=== PATIENT | male | born 1945 | race Caucasian/White ===

== ENCOUNTER 2020-03-12 13:27 | Outpatient (CLI) | payer OTHER, SELFPAY ==
--- NOTE | 2020-03-12 13:37 | MR_ITS ---
WS: [id number] MRI OF THE ABDOMEN WITHOUT AND WITH GADOLINIUM ENHANCEMENT INDICATION: Renal lesion TECHNIQUE: Axial dual Echo, axial 2-D fiesta, coronal 2-D fiesta, axial T2 fat sat, axial T1 fat sat, post gadolinium imaging was obtained. FINDINGS: Correlation outside CT report Normal bilateral renal parenchymal enhancement. No hydronephrosis. Bilateral renal cysts. Right renal cyst measuring 1.8 cm with some T1 hyperintensity consistent with proteinaceous debris or blood prod ucts and no enhancement. Additional adjacent peripelvic renal cyst measuring 1.2 cm Smaller left lower pole renal cyst measuring 10 mm. No abnormal enhancing renal lesions. Additional tiny cyst mid pole left kidney. One or 2 additional tiny lesions lower pole right kidney likely cysts measuring 1 to 2 mm Incidental right hepatic cyst measuring 12 mm. Additional suspected cavernous hemangioma right hepati c lobe measuring 12 mm. Normal caliber abdominal aorta. Adrenal glands are normal. Cholelithiasis. No abdominal lymphadenopathy. MR/MR abdomen wo/w con* [id number] IMPRESSION: 1. Bilateral renal cysts largest on the right measuring 1.8 cm. No solid enhan cing renal lesions. 2. No hydronephrosis in either kidney. 3. Right hepatic cyst right and right hepatic cavernous hemangioma described a chayito. 4. Cholelithiasis. 5. No abdominal lymphadenopathy.
== END 2020-03-12 13:28 | disposition home or self-care (01) ==
LOC: RADSHAW 13:30
PROVIDERS: PCP Nurse Practitioner; Visit Provider Nurse Practitioner
DX: N28.9 Disorder of kidney and ureter, unspecified (principal); Q61.02 Congenital multiple renal cysts; K80.20 Calculus of gallbladder without cholecystitis without obstruction
CPT/HCPCS: 74183; A9577

== ENCOUNTER 2020-04-07 08:08 | Day surgery (SDC) | payer OTHER, SELFPAY ==
[2020-04-06 10:20] VITALS: BMI 27.8
[2020-04-07 08:15] VITALS: BP 142/87; PULSE 63; RESP 16; TEMP 36.8; O2SAT 98
[2020-04-07] MEDS: sodium chloride 0.9% 1,000 ML 30 ML IV (08:29)
--- NOTE | 2020-04-07 08:42 | P.ANESASSM_ITS ---
Pre-Anesthetic Assessment Pre-Anesthetic Assessment: Height/Weight: Height 1.83 m Weight 92.986 kg Temp Pulse Resp BP Pulse Ox 98.3 F 63 16 142/87 98 04/07/20 08:15 04/07/20 08:15 04/07/20 08:15 04/07/20 08:15 04/07/20 08:15 Preop Diagnosis: panendoscopy Proposed Procedure: Operation Date: 04/07/20 09:00 Proposed Procedures p EGD/colon [id number] R10.9 R19.7(Not Applicable) - Brandon Lantigua MD s Colonoscopy(Not Applicable) - Brandon Lantigua MD Was Beta Harpreet taken within 24 hours: N/A Last intake: Intake Last Liquid Date 04/07/20 Last Liquid Time 07:00 Last Solid Date 04/06/20 Last Solid Time 07:00 Social: Social History: No alcohol and No tobacco Exam: Pre-Anes Outpt Exam: alert, oriented x 3, clear to auscultation bilaterally and regular rate & rhythm Airway: Submandibular: WNL Cervical ROM: WNL MP: 2 Dentition: Full Neuropsych: Neuropsych: SIEGEL Anesthetic Plan: ASA status: 2 Anesthesia: MAC Risk of > 500 ml blood loss (7ml/kg in children): No Meds/Allergies Current Medications: Current Medications Generic Name Dose Route Start Last Admin Trade Name Freq PRN Reason Stop Dose Admin Sodium Chloride 1,000 mls @ 30 ml s/hr 04/07/20 08:15 04/07/20 08:29 Sodium Chloride 0.9% IV 04/08/20 08:14 30 mls/hr .Q24H NAA Administration PFSH Anesthesia 2 PFSH: Medical History (Updated 03/23/20 @ 14:16 by Brandon Lantigua MD) BPH (benign prostatic hyperplasia) History of glaucoma Migraine Surgical History (Updated 03/23/20 @ 14:16 by Brandon Lantigua MD) H/O eye surgery History of colonoscopy Family History (Updated 03/23/20 @ 14:01 by Clemencia Johns RN) Denies family history of Anesthesia complication Bleeding disorder Social History Smoking and tobacco status: never smoked Alcohol intake: never Data Anesthesia Cardiac Studies: No Data to Display
--- NOTE | 2020-04-07 09:28 | W.PM.OPSUD ---
Surgery/Procedure H&P Update DATE OF PROCEDURE: April 07, 2020 DATE H&P PERFORMED: 03/23/20 H&P UPDATE INFORMATION: I have reviewed H&P completed within last 30 days, I have examined patient prior to procedure and No changes to prior documentation PREOP DIAGNOSIS: panendoscopy PLANNED PROCEDURE: Operation Date: 04/07/20 09:00 Proposed Procedures p EGD/colon 81785 [id number] R10.9 R19.7(Not Applicable) - Brandon Lantigua MD s Colonoscopy(Not Applicable) - Brandon Lantigua MD
[2020-04-07 09:58] VITALS: BP 116/82; PULSE 61; RESP 16; TEMP 36.1; O2SAT 99
[2020-04-07 10:15] VITALS: BP 105/67; PULSE 64; RESP 16; O2SAT 97
--- NOTE | 2020-04-07 12:07 | ANE.PACU2 ---
Inpatient post-anesthesia follow up: Airway intact: Yes Vital signs: Temperature 97 F Pulse Rate 64 Respiratory Rate 16 Blood Pressure 105/67 Pulse Oximetry 97 Oxygen Delivery Me thod Room Air Oxygen Flow Rate Fraction of Inspir ed Oxygen Hydration adequate: Yes Nausea and vomiting: No Pain level: 1 Mental status: Baseline
== END 2020-04-07 10:24 | disposition home or self-care (01) ==
PROVIDERS: PCP Nurse Practitioner; Visit Provider Surgery
PROC: 0DJ08ZZ Inspection of Upper Intestinal Tract, Via Natural or Artificial Opening Endoscopic (ICD-10-PCS; CPT 43235; principal; 2020-04-07 09:00)
PROC: 0DJD8ZZ Inspection of Lower Intestinal Tract, Via Natural or Artificial Opening Endoscopic (ICD-10-PCS; CPT 45378; 2020-04-07 09:00)
DX: R11.2 Nausea with vomiting, unspecified (principal); R10.9 Unspecified abdominal pain; N40.0 Benign prostatic hyperplasia without lower urinary tract symptoms; R19.7 Diarrhea, unspecified; K64.8 Other hemorrhoids; K25.9 Gastric ulcer, unspecified as acute or chronic, without hemorrhage or perforation
CPT/HCPCS: 43239; 45378; 88305; J2704; J3490; J7030

== ENCOUNTER → 2020-04-28 13:34 | Outpatient (BNVA) | payer OTHER, SELFPAY | PROVIDERS: PCP Nurse Practitioner; Visit Provider Specialist | DX: G56.03 Carpal tunnel syndrome, bilateral upper limbs (principal); R20.0 Anesthesia of skin; R20.2 Paresthesia of skin | CPT/HCPCS: 95910 ==

== ENCOUNTER → 2020-06-10 08:49 | Outpatient (BNVA) | payer OTHER, SELFPAY | PROVIDERS: PCP Nurse Practitioner; Referring Provider Nurse Practitioner; Visit Provider Internal Medicine Rheumatology | DX: M19.90 Unspecified osteoarthritis, unspecified site (principal); G56.03 Carpal tunnel syndrome, bilateral upper limbs; Z79.899 Other long term (current) drug therapy; Z11.59 Encounter for screening for other viral diseases; Z11.1 Encounter for screening for respiratory tuberculosis; Z86.16 Personal history of COVID-19 | CPT/HCPCS: 99204 ==

== ENCOUNTER 2020-06-10 10:36 | Outpatient (CLI) | payer OTHER, SELFPAY ==
--- NOTE | 2020-06-10 10:48 | XR_ITS ---
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 There is a 2 mm metallic foreign body noted along the lateral jaclyn n of the second MP joint. Joint structures are relatively well maintained. XR/XR hand RT min 3V* [id number] IMPRESSION: 1. No fracture or dislocation. 2. 2 mm metallic foreign body in the soft tissues near the second MP joint.
--- NOTE | 2020-06-10 10:48 | XR_ITS ---
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 No sign of bone destruction. Mild DJD at the first MP joint. Normal soft tissues. XR/XR foot RT min 3V* [id number] IMPRESSION: 1. No fracture. 2. Mild DJD at the first MP joint.
--- NOTE | 2020-06-10 10:48 | XR_ITS ---
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 Articular relationships are intact. No soft tissue foreign bodies. Very minimal degenerative joint changes noted consistent with age. XR/XR hand LT min 3V* [id number] IMPRESSION: 1. No fracture or other significant finding. 2. Very minimal degenerative joint changes are noted consistent with age.
--- NOTE | 2020-06-10 10:48 | XR_ITS ---
WS: [id number] Exam: XR foot LT min 3V* [id number] Date/Time of Exam: 06/10/2020 11:16 AM Reason For Exam: Z79.899 - Other exterminator (current) drug therapy No fracture or dislocation. Joint structures are relatively well maintained. No soft tissue foreign b odies are seen. No sign of cortical erosion or bone destruction. XR/XR foot LT min 3V* [id number] IMPRESSION: 1. Negative left foot.
--- NOTE | 2020-06-10 10:48 | XR_ITS ---
WS: [id number] Exam: XR chest 2V* [id number] Date/Time of Exam: 06/10/2020 10:48 AM Reason For Exam: Z79.899 - Other long term acute care registered nurse (current) drug therapy Findings: The lungs are clear and fully expanded. Costophrenic angles are sharp. No infiltrates. Bronchovascula r relief appears normal. Cardiac silhouette is unremarkable. Bony elements are intact. XR/XR chest 2V* [id number] IMPRESSION: Unremarkable chest radiograph.
[2020-06-10 11:29] LABS: Basophils % 0.8 %; Eosinophils # 0.4 10^3/uL (0.0-0.8); Eosinophils % 8.5 %; Hematocrit 44.8 % (42.0-52.0); Hemoglobin 14.5 g/dL (11.7-16.6); Lymphocytes # 1.3 10^3/uL (0.8-4.8); Mean Corpuscular HGB Conc 32.4 g/dL (30.0-36.0); Mean Corpuscular Hemoglobin 31.1 pg (28.0-34.0); Mean Corpuscular Volume 96.1 fL (80-94); Mean Platelet Volume 10.3 fL (7.4-10.4); Monocytes # 0.7 10^3/uL (0.2-0.9); Monocytes % 13.2 %; Neutrophils # 2.52 10^3/uL (1.8-7.7); Neutrophils % 51.1 %; Nucleated Red Blood Cells % 0 %; Platelet Count 216 10^3/cmm (130-400); Red Blood Count 4.66 10^6/uL (4.1-5.3); Red Cell Distribution Width 14.6 % (12.1-15.1); White Blood Count 4.9 10^3/uL (4.0-10.0)
[2020-06-10 12:35] LABS: Hepatitis B Core AB, Total Non-Reactive (Nonreactive); Hepatitis B Surface Antigen Non-Reactive (Nonreactive); Hepatitis C Virus Antibody Non-Reactive (Nonreactive)
[2020-06-10 13:07] LABS: Erythrocyte Sedimentation Rate 14 mm/hr (0-10)
[2020-06-10 13:50] LABS: 25 Hydroxy Vitamin D 41 ng/mL (30-100); Alanine Aminotransferase 53 U/L (0-41); Albumin Level 3.7 g/dL (3.5-5.2); Alkaline Phosphatase 75 IU/L (40-130); Aspartate Amino Transferase 51 U/L (0-40); Globulin 3.6 g/dL (1.3-4.6); Total Bilirubin 0.5 mg/dL (0.15-1.2); Total Protein 7.3 g/dL (6.6-8.7)
[2020-06-11 13:47] LABS: Cyclic Citrullinated Peptide <16 UNITS
[2020-06-12 10:53] LABS: COMPLEMENT COMPONENT C3C 122 mg/dL (82-185); COMPLEMENT COMPONENT C4C 23 mg/dL (15-53)
[2020-06-12 12:33] LABS: Quantiferon Mitogen 7.47 IU/mL; Quantiferon Nil 0.13 IU/mL; Quantiferon Plus TB1 0.02 IU/mL; Quantiferon Plus TB2 0.04 IU/mL; Quantiferon TB Gold NEGATIVE (NEGATIVE)
[2020-06-12 15:53] LABS: COMPLEMENT, TOTAL (CH50) >60 U/mL (31-60)
[2020-06-15 14:27] LABS: ANA SCREEN, IFA NEGATIVE (NEGATIVE)
[2020-06-15 15:32] LABS: THYROID PEROXIDASE ANTIBODIES 1 IU/mL (<9)
[2020-06-16 15:22] LABS: CENTROMERE B ANTIBODY <1.0 NEG AI (<1.0 NEG); JO-1 ANTIBODY <1.0 NEG AI (<1.0 NEG); RNP ANTIBODY <1.0 NEG AI (<1.0 NEG); SCL-70 ANTIBODY <1.0 NEG AI (<1.0 NEG); SJOGREN'S ANTIBODY (SS-A) >8.0 POS AI (<1.0 NEG); SM ANTIBODY <1.0 NEG AI (<1.0 NEG); SS-B <1.0 NEG AI (<1.0 NEG)
[2020-06-16 16:27] LABS: DNA AB (DS) CRITHIDIA,IFA NEGATIVE (NEGATIVE)
== END 2020-06-10 10:37 | disposition home or self-care (01) ==
LOC: RAD 10:40
PROVIDERS: PCP Nurse Practitioner; Visit Provider Internal Medicine Rheumatology
DX: M19.90 Unspecified osteoarthritis, unspecified site (principal); Z79.899 Other long term (current) drug therapy; Z11.59 Encounter for screening for other viral diseases; R76.8 Other specified abnormal immunological findings in serum; Z11.1 Encounter for screening for respiratory tuberculosis
CPT/HCPCS: 36415; 71046; 73130; 73630; 80076; 82306; 82565; 85025; 85651; 86140; 86160; 86162; 86235; 86255; 86376; 86480; 86704; 86803; 87340

== ENCOUNTER → 2020-07-14 14:20 | Outpatient (BNVA) | payer OTHER, SELFPAY | PROVIDERS: PCP Nurse Practitioner; Visit Provider Internal Medicine Rheumatology | DX: M19.90 Unspecified osteoarthritis, unspecified site (principal); M35.00 Sjogren syndrome, unspecified; Z79.899 Other long term (current) drug therapy; G56.03 Carpal tunnel syndrome, bilateral upper limbs; Z86.16 Personal history of COVID-19 | CPT/HCPCS: 99214 ==

== ENCOUNTER 2020-09-07 14:16 | Outpatient (CLI) | payer OTHER, SELFPAY ==
--- NOTE | 2020-09-07 14:22 | US_ITS ---
WS: [id number] ULTRASOUND RENAL TECHNIQUE: Ultrasound examination of both kidneys. CLINICAL INFORMATION: CYST OF KIDNEY, ACQUIRED COMPARISON: None. FINDINGS: Technically difficult examination due to bowel gas RIGHT: Right kidney is normal in size and appearance. Echogenicity: Normal. Cortical thickness: 1.8 cm; Normal. Hydronephrosis: None. Perinephric fluid: None. Right kidney measures: 11.1 cm x 5.0 cm x 6.4 cm. LEFT: Left kidney is normal in size and appearance. Echogenicity: Normal. Cortical thickness: 1.5 cm; Normal. Hydronephrosis: None. Perinephric fluid: None. Left kidney measures: 11.2 cm x 4.6 cm x 5.4 cm. Normal visualized aorta. Bladder is decompressed. US/US renal BI* [id number] IMPRESSION: Technically difficult examination. 1. Both kidneys are normal in appearance. No hydronephrosis. 2. Bladder is decompressed.
== END 2020-09-07 14:17 | disposition home or self-care (01) ==
LOC: RAD 14:18
PROVIDERS: PCP Nurse Practitioner; Visit Provider Urology
DX: N28.1 Cyst of kidney, acquired (principal)
CPT/HCPCS: 76770

== ENCOUNTER → 2020-09-08 12:59 | Outpatient (BNVA) | payer OTHER, SELFPAY | PROVIDERS: PCP Nurse Practitioner; Visit Provider Urology | DX: N28.1 Cyst of kidney, acquired (principal); N52.1 Erectile dysfunction due to diseases classified elsewhere; N48.6 Induration penis plastica | CPT/HCPCS: 81003 ==

== ENCOUNTER → 2020-10-12 10:37 | Outpatient (BNVA) | payer OTHER, SELFPAY | PROVIDERS: PCP Nurse Practitioner; Referring Provider Nurse Practitioner; Visit Provider Specialist | DX: G56.03 Carpal tunnel syndrome, bilateral upper limbs (principal) | CPT/HCPCS: 73110 ==

== ENCOUNTER → 2020-11-18 12:41 | Outpatient (BNVA) | payer OTHER, SELFPAY | PROVIDERS: PCP Nurse Practitioner; Visit Provider Internal Medicine | DX: Z71.89 Other specified counseling (principal); Z79.899 Other long term (current) drug therapy; M19.90 Unspecified osteoarthritis, unspecified site; M35.00 Sjogren syndrome, unspecified | CPT/HCPCS: 36415; 80076; 82565; 85025; 86140 ==

== ENCOUNTER 2020-11-19 10:03 | Outpatient (CLI) | payer OTHER, SELFPAY ==
--- NOTE | 2020-11-19 10:12 | US_ITS ---
WS: [id number] ULTRASOUND ABDOMEN CLINICAL INFORMATION: ELEVATED LIVER ENZYMES COMPARISON: MRI March 12, 2020 FINDINGS: Liver Size: Normal. Craniocaudal length: 14.5 cm. Echogenicity: Normal. Surface nodularity: None. Mass (size and location): Right cavernous hemangioma measuring 1.8 x 1.2 x 1.6 cm is stable. Bile ducts Intrahepatic ducts: Normal. Common bile duct diameter: 0.3 cm. Gallbladder Cholelithiasis Gallstones: Present Gallbladder sludge: None. Gallbladder wall thickening: None. Pericholecystic fluid: None. Sonographic Casanova sign: Absent. Pancreas Normal as visualized. Spleen Splenomegaly: None. Craniocaudal length: 9.0 cm. Right kidney: Normal. Hydronephrosis: None. Size: 9.9 cm x 4.6 cm x 4.2 cm Left kidney: Normal. Hydronephrosis: None. Size: 11.0 cm x 6.2 cm x 6.1 cm. Abdominal aorta and IVC Visualized portions are normal. Ascites: None. US/US abdomen complete* [id number] IMPRESSION: 1. Stable hemangioma right hepatic lobe. 2. Cholelithiasis. Normal common bile duct. No gallbladder wall thickening or pericholecystic fluid. 3. No hydronephrosis in either kidney.
== END 2020-11-19 10:04 | disposition home or self-care (01) ==
LOC: US 10:04
PROVIDERS: PCP Nurse Practitioner; Visit Provider Emergency Medicine Emergency Medical Services
DX: R74.8 Abnormal levels of other serum enzymes (principal); D18.09 Hemangioma of other sites; K80.20 Calculus of gallbladder without cholecystitis without obstruction
CPT/HCPCS: 76700

== ENCOUNTER → 2020-11-23 08:11 | Outpatient (BNVA) | payer OTHER, SELFPAY | PROVIDERS: PCP Nurse Practitioner; Referring Provider Nurse Practitioner; Visit Provider Specialist | DX: M25.511 Pain in right shoulder (principal); M19.011 Primary osteoarthritis, right shoulder | CPT/HCPCS: 73030 ==

== ENCOUNTER → 2020-11-26 07:58 | Outpatient (BNVA) | payer OTHER, SELFPAY | PROVIDERS: PCP Nurse Practitioner; Referring Provider Specialist; Visit Provider Specialist | DX: G56.03 Carpal tunnel syndrome, bilateral upper limbs (principal); G56.22 Lesion of ulnar nerve, left upper limb | CPT/HCPCS: 95886; 95910; 99202 ==

== ENCOUNTER 2020-12-08 07:00 | Outpatient (CLI) | payer OTHER, SELFPAY ==
--- NOTE | 2020-12-08 07:15 | MR_ITS ---
WS: [id number] MRI RIGHT SHOULDER HISTORY: S49.90XA - Unspecified injury of shoulder and upper arm, ... COMPARISON: Radiograph 11/23/2020 TECHNIQUE: Multiplanar sequences of the shoulder joint are submitted. Moderate AC joint arthritis. Bone and soft tissue hypertrophy at the AC joint with encroachment upon the supraspinatus tendon and muscle. Moderate amount of fluid in the subacromial and subdeltoid bursa . No os acromion. Biceps tendon remains in the bicipital groove. There is increased fluid within the tendon sheath. There is a large fluid gap within the supraspinatus tendon. The fluid gap measures 14 mm and is over the superior lateral humeral head. There is retraction of the tendon to the superior humeral head. Th ere is also increased fluid extending along the supraspinatus muscle. Infraspinatus tendon is intact. Subscapularis tendon is also intact. Moderate amount of fluid surrounding the humeral head extending into the axillary recess. Subchondral cystic changes over the posterior lateral humeral head. No labral tear is identified. Mil d narrowing of the glenohumeral joint. MR/MR shoulder RT wo con* [id number] IMPRESSION: 1. Complete tear supraspinatus tendon. Tear extends over a length of 14 mm wi th mild retraction of the tendon. 2. Moderate AC joint arthritis with encroachment upon the supraspinatus tendon and muscle. 3. Increase fluid along the supraspinatus muscle.
== END 2020-12-08 07:01 | disposition home or self-care (01) ==
PROVIDERS: PCP Nurse Practitioner; Visit Provider Specialist
DX: M75.121 Complete rotator cuff tear or rupture of right shoulder, not specified as traumatic (principal); M19.011 Primary osteoarthritis, right shoulder
CPT/HCPCS: 73221; 99214

== ENCOUNTER → 2020-12-18 08:18 | Outpatient (BNVA) | payer OTHER, SELFPAY | PROVIDERS: PCP Nurse Practitioner; Visit Provider Specialist | DX: Z20.822 Contact with and (suspected) exposure to COVID-19 (principal); M25.511 Pain in right shoulder | CPT/HCPCS: 87635 ==

== ENCOUNTER 2020-12-22 05:25 | Day surgery (SDC) | payer OTHER, SELFPAY ==
[2020-12-21 14:00] VITALS: BMI 28.2
[2020-12-22 05:55] VITALS: BP 132/85; PULSE 66; RESP 18; TEMP 36.7; O2SAT 98
[2020-12-22] MEDS: CELEcoxib 200 mg Capsule 400 MG PO (06:18)
[2020-12-22] MEDS: acetaminophen 1,000 MG/100 ML PIGGYBACK 400 MG IV (06:19)
--- NOTE | 2020-12-22 06:19 | ANES.PREANE2 ---
Pre-Anesthetic Assessment Pre-Anesthetic Assessment: Height/Weight: Height 1.83 m Weight 94.347 kg Temp Pulse Resp BP Pulse Ox 98.1 F 66 18 132/85 98 12/22/20 05:55 12/22/20 05:55 12/22/20 05:55 12/22/20 05:55 12/22/20 05:55 Preop Diagnosis: Right rotator cuff tear, AC joint DJD, impingement Proposed Procedure: Operation Date: 12/22/20 07:00 Proposed Procedures p Rotator Cuff Repair [id number] M75.100 M25.511(Right) - Connie Pena MD s Acromioplaty Distal Clavicle Resection(Right) - Connie Pena MD Was Beta Harpreet taken within 24 hours: N/A Was Clonidine taken within 24 hours: N/A Last intake: Intake Last Liquid Date 12/21/20 Last Liquid Time 20:00 Last Solid Date 12/21/20 Last Solid Time 18:00 Social: Social History: No tobacco Exam: Pre-Anes Outpt Exam: alert, oriented x 3, clear to auscultation bilaterally and regular rate & rhythm Airway: Submandibular: WNL Cervical ROM: WNL MP: 2 History/ROS: No significant history except as noted and No significant complaints Neuropsych: Neuropsych: SIEGEL Anesthetic Plan: ASA status: 2 Anesthesia: Anesthesia Evaluation, General and Regional (specify below) Other: Right interscalene block. Risk of > 500 ml blood loss (7ml/kg in children): No PFSH Anesthesia PFSH: Medical History BPH (benign prostatic hyperplasia) Cyst of kidney, acquired Erectile dysfunction High risk medication use History of glaucoma Immunization counseling Inflammatory arthritis Migraine Peyronie's disease Primary Sjogren's syndrome Surgical History H/O esophagogastroduodenoscopy (~04/07/20) H/O eye surgery History of colonoscopy (~04/07/20) Family History Mother , at age 72 Arthritis Sister Rheumatoid arthritis Father , at age 71 Stroke Social History Smoking and tobacco status: never smoked Alcohol intake: current Alcohol intake frequency: 3 or more drinks per day Marital status: Current occupational status: retired History of recent travel: No Data Anesthesia CBC & Chem 7: 12/22/20 06:09 12/22/20 06:09 Cardiac Studies: No Data to Display
[2020-12-22] MEDS: sodium chloride 0.9% 1,000 ML 30 ML IV (06:20)
[2020-12-22 06:24] LABS: Basophils # 0.1 10^3/uL (0.0-0.1); Basophils % 0.9 %; Eosinophils # 0.5 10^3/uL (0.0-0.8); Eosinophils % 8.1 %; Hematocrit 43.8 % (42.0-52.0); Hemoglobin 14.6 g/dL (11.7-16.6); Lymphocytes # 1.7 10^3/uL (0.8-4.8); Lymphocytes % 30.1 %; Mean Corpuscular HGB Conc 33.3 g/dL (30.0-36.0); Mean Corpuscular Hemoglobin 31.5 pg (28.0-34.0); Mean Corpuscular Volume 94.6 fl (80-94); Mean Platelet Volume 10.8 fL (7.4-10.4); Monocytes # 0.8 10^3/uL (0.2-0.9); Monocytes % 13.8 %; Neutrophils # 2.63 10^3/uL (1.8-7.7); Neutrophils % 47.1 %; Nucleated Red Blood Cells % 0 %; Platelet Count 234 10^3/cmm (130-400); Red Blood Count 4.63 10^6/uL (4.1-5.3); Red Cell Distribution Width 14.3 % (12.1-15.1); White Blood Count 5.6 10^3/uL (4.0-10.0)
[2020-12-22 06:36] LABS: Alanine Aminotransferase 27 U/L (0-41); Albumin Level 3.7 g/dL (3.5-5.2); Alkaline Phosphatase 60 IU/L (40-130); Anion Gap 12.2 (5-19); Aspartate Amino Transferase 32 U/L (0-40); Blood Urea Nitrogen 12 mg/dL (8-23); Calcium 8.6 mg/dL (8.5-10.5); Carbon Dioxide 27 mmol/L (22-29); Chloride 103 mmol/L (98-107); Globulin 3.8 g/dL (1.3-4.6); Glucose 86 mg/dL (65-115); Osmolality Calculated 285 mOsm/kg (285-295); Potassium 4.2 mmol/L (3.5-5.1); Sodium 138 mmol/L (136-145); Total Bilirubin 0.9 mg/dL (0.15-1.2); Total Protein 7.5 g/dL (6.6-8.7)
--- NOTE | 2020-12-22 06:53 | P.HPUD_ITS ---
Surgery/Procedure H&P Update DATE OF PROCEDURE: December 22, 2020 DATE H&P PERFORMED: 12/16/20 H&P UPDATE INFORMATION: I have reviewed H&P completed within last 30 days, I have examined patient prior to procedure, No changes to prior documentation and H&P is in [facility] [place] EMR on date indicated PREOP DIAGNOSIS: Right rotator cuff tear, AC joint DJD, impingement PLANNED PROCEDURE: Operation Date: 12/22/20 07:00 Proposed Procedures p Rotator Cuff Repair [id number] M75.100 M25.511(Right) - Connie Pena MD s Acromioplaty Distal Clavicle Resection(Right) - Connie Pena MD Related Problem List Diagnoses (1) Arthritis of right acromioclavicular joint: (2) Impingement syndrome of right shoulder: (3) Rotator cuff tear, right: Qualifiers: Rotator cuff tear extent: complete Rotator cuff tear trauma status: unspecified whether traumatic Qualified Code(s): M75.121 - Complete rotator cuff tear or rupture of right shoulder, not specified as traumatic
[2020-12-22] MEDS: midazolam 1 mg/mL INJ 5 ML 5 MG IVP (06:57)
[2020-12-22 09:52] VITALS: BP 137/87; PULSE 71; RESP 18; O2SAT 97
--- NOTE | 2020-12-22 09:59 | P.OP_ITS ---
Operative Report Date of procedure: December 22, 2020 Pre-op Diagnosis: Right rotator cuff tear, AC joint DJD, impingement Post-op diagnosis: same Post-op Findings: Large rotator cuff tear, repairable Procedure Done: Right rotator cuff repair utilizing the Biosteon Enterline 5.5 mm suture anchor with 2 force fibers, side to side repair of rotator cuff, acromioplasty, distal clavicle resection Implants: Biosteon intraline 5.5 mm suture anchor with 2 #2 force fibers Specimens removed/disposition: None Pathology: none sent Surgeon: Connie Pena Flying Shear Operator: [facility] operating room technicians Anesthesia: General (Intubated, ASA 2) Estimated blood loss (mL): 25 IV fluids (mL): 1,500 Urine output (mL): 0 Urine output: No Watts Complications: None Findings: Large rotator cuff tear involving the supraspinatus tendon with side to side longitudinal and transverse tearing. Condition: stable Disposition: PACU (Then discharged to home with family) Brief History: This is a established 75 year-old male patient resenting for right rotator cuff repair, acromioplasty, and distal clavicle resection. He states the injury occurred 2 to 3 months ago and was secondary to pushing his tool box. He felt a pop in his shoulder. The patient states he was using his arm to push and rotate in an external rotation abduction maneuver at the time of his injury. Patient denies pain in shoulder at rest, but he states when he moves the shoulder, the pain jumps up to a 4/10. Preoperative MRI confirmed rotator cuff tear, and the patient wished to proceed with the above procedure. Procedure: The patient was brought to the operating theater and underwent general intubated anesthesia ASA 2. The patient was placed in a beachchair position and subsequently the right upper extremity was prepped and draped in the usual fashion utilizing DuraPrep. The arm was draped free. A surgical pause was performed prior to commencement of the surgical procedure. At the time of the surgical pause, we confirmed the site and side of surgery as well as administration of appropriate preoperative antibiotics Ancef 2 g. MRI was also reviewed at that time. Following the surgical pause, an incision was made at approximately the level of the acromioclavicular joint extending across the anterolateral corner of the acromion and distally as necessary. Care was taken to avoid injury to the axillary nerve by limiting the distal extent of the incision. Dissection continued through skin and soft tissues using a scalpel. Hemostasis was obtained using electrocautery. Soft tissues were elevated off the acromion. An acromioplasty was then accomplished using a combination of a saw and a power rasp. With this, we were able to remove compression caused by the acromion. The rotator cuff was then evaluated to look for tears. There was a large tear involving the supraspinatus tendon. There was retraction to the midportion of the humeral head. With manipulation, we were able to perform a partial vertical tear followed by horizontal tear with a suture anchor. The rotator cuff tear was evaluated. The edges were freshened using a scalpel. The reattachment point bony on the humeral head was addressed with a rongeur to prepare a bed for appropriate repair. Repair was accomplished using 0 Ethibond in an interrupted fashion for the horizontal portion of the repair, and the suture anchor with 2 force fibers was used for the horizontal repair. After the rotator cuff had been thus addressed, the shoulder was placed through further range of motion to assure there was no further evidence of rotator cuff tear or impingement. The acromioclavicular joint was exposed. A saw was then used to resect the distal clavicle without difficulty. The undersurface of the clavicle was palpated and was slightly further debrided. A power rasp was used to further smooth the area. When this was felt to be adequately resected, the wound was irrigated. Attention was then directed to closure. The wound was irrigated and closure was accomplished with 0 Vicryl in the capsular tissues overlying the acromioclavicular joint area as well as over the acromion and down into the deltoid muscle. 2-0 Monocryl was used to close the subcutaneous tissues followed by 4-0 Monocryl subcuticular closure. This was followed by Dermabond, Steri-Strips, Telfa, and Tegaderm. The patient was placed in a slingshot style sling and was returned to the recovery room in satisfactory condition. The patient will be discharged to home to follow-up with me in the office as previously scheduled. There were no complications and no specimens. Associated Problem List Diagnoses (1) Arthritis of right acromioclavicular joint: (2) Impingement syndrome of right shoulder: (3) Rotator cuff tear, right: Qualifiers: Rotator cuff tear extent: complete Rotator cuff tear trauma status: unspecified whether traumatic Qualified Code(s): M75.121 - Complete rotator cuff tear or rupture of right shoulder, not specified as traumatic
[2020-12-22] MEDS: ondansetron 2 mg/ML SDV 2 mL 4 MG IVP (10:27)
[2020-12-22 10:32] VITALS: BP 140/85; PULSE 73; RESP 18; O2SAT 97
--- NOTE | 2020-12-22 11:34 | ANE.PACU2 ---
Inpatient post-anesthesia follow up: Airway intact: Yes Vital signs: Temperature 98.1 F Pulse Rate 73 Respiratory Rate 18 Blood Pressure 140/85 Pulse Oximetry 97 Oxygen Delivery Me thod Room Air Oxygen Flow Rate 8 Fraction of Inspir ed Oxygen Hydration adequate: Yes Nausea and vomiting: No (Resolved.) Pain level: 1 Mental status: Baseline
== END 2020-12-22 10:55 | disposition home or self-care (01) ==
PROVIDERS: PCP Nurse Practitioner; Visit Provider Specialist
PROC: (CPT 23120; principal; 2020-12-22 07:00)
PROC: (CPT 23120; 2020-12-22 07:00)
DX: M75.101 Unspecified rotator cuff tear or rupture of right shoulder, not specified as traumatic (principal); M19.011 Primary osteoarthritis, right shoulder; M75.41 Impingement syndrome of right shoulder; M25.511 Pain in right shoulder; Z88.1 Allergy status to other antibiotic agents; X50.0XXA Overexertion from strenuous movement or load, initial encounter; G89.18 Other acute postprocedural pain
CPT/HCPCS: 23120; 23130; 23412; 36415; 80053; 85025; 96365; 96374; 97165; C1713; J0690; J1100; J2250; J2405; J2704; J2795; J3010; J3490; J7030

== ENCOUNTER 2021-02-16 06:00 | Outpatient (RCR) | payer OTHER, SELFPAY | END 2021-03-15 23:59 | disposition home or self-care (01) | LOC: SPT 06:00 | PROVIDERS: PCP Nurse Practitioner; Referring Provider Specialist; Visit Provider Specialist | DX: M25.511 Pain in right shoulder (principal) | CPT/HCPCS: 97110; 97140; 97161 ==

== ENCOUNTER → 2021-03-09 08:12 | Outpatient (BNVA) | payer OTHER, SELFPAY | PROVIDERS: PCP Nurse Practitioner; Visit Provider Urology | DX: N52.9 Male erectile dysfunction, unspecified (principal); N28.1 Cyst of kidney, acquired; N48.6 Induration penis plastica; N52.1 Erectile dysfunction due to diseases classified elsewhere | CPT/HCPCS: 81003 ==

== ENCOUNTER 2021-03-16 06:00 | Outpatient (RCR) | payer OTHER, SELFPAY | END 2021-04-12 23:59 | disposition home or self-care (01) | LOC: SPT 06:00 | PROVIDERS: PCP Nurse Practitioner; Referring Provider Specialist; Visit Provider Specialist | DX: M25.511 Pain in right shoulder (principal) | CPT/HCPCS: 97110; 97140 ==

== ENCOUNTER → 2021-03-31 13:49 | Outpatient (BNVA) | payer OTHER, SELFPAY | PROVIDERS: PCP Nurse Practitioner; Visit Provider Internal Medicine Rheumatology | DX: M19.90 Unspecified osteoarthritis, unspecified site (principal); M35.00 Sjogren syndrome, unspecified; Z79.899 Other long term (current) drug therapy; G56.03 Carpal tunnel syndrome, bilateral upper limbs; Z82.61 Family history of arthritis; Z86.16 Personal history of COVID-19; Z71.89 Other specified counseling | CPT/HCPCS: 99214 ==

== ENCOUNTER → 2021-09-03 09:06 | Outpatient (BNVA) | payer OTHER, SELFPAY | PROVIDERS: PCP Nurse Practitioner; Visit Provider Urology | DX: N28.1 Cyst of kidney, acquired; N52.1 Erectile dysfunction due to diseases classified elsewhere; N48.6 Induration penis plastica | CPT/HCPCS: 81003; 99213 ==

== ENCOUNTER → 2021-09-06 09:55 | Outpatient (BNVA) | payer OTHER, SELFPAY | PROVIDERS: PCP Nurse Practitioner; Visit Provider Internal Medicine Cardiovascular Disease | DX: R07.9 Chest pain, unspecified (principal); R03.0 Elevated blood-pressure reading, without diagnosis of hypertension; Z13.6 Encounter for screening for cardiovascular disorders | CPT/HCPCS: 99203; 99204 ==

== ENCOUNTER → 2021-10-14 09:44 | Outpatient (BNVA) | payer OTHER, SELFPAY | PROVIDERS: PCP Nurse Practitioner; Visit Provider Internal Medicine Rheumatology | DX: M19.90 Unspecified osteoarthritis, unspecified site (principal); M35.00 Sjogren syndrome, unspecified; Z71.89 Other specified counseling; Z79.899 Other long term (current) drug therapy; Z82.61 Family history of arthritis; Z86.16 Personal history of COVID-19; G56.03 Carpal tunnel syndrome, bilateral upper limbs | CPT/HCPCS: 99214 ==

== ENCOUNTER 2021-11-04 12:02 | Outpatient (CLI) | payer OTHER, SELFPAY ==
--- NOTE | 2021-11-04 | ECG_ITS ---
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 Interpretive Statements NAME OF STUDY: TREADMILL STRESS TEST INDICATION: Atypical Chest Pain Baseline blood pressure of 153/85 mm Hg, heart rate of 100 beats per minute. EKG showed normal sinus rhythm, normal axis with normal ST-Ts. The patient exercised for 6 minutes on a standard Victor Manuel protocol. Patient attained a maximum heart rate of 131 beats per minute(90% of the maximum predicted heart rate) with a blood pressure at the peak exercise of 165/101 mm Hg. The EKG at the peak exercise revealed sinus tachycardia with no significant ST-T wave changes. Patient did not have any chest pain or any significant arrhythmis with the exercise During the recovery phase, there were no new changes. Blood pressure at the end of the recovery phase was 157/80 mm Hg with a heart rate of 81 beats per minute. CONCLUSION: 1. Normal EKG response to treadmill exercise. 2. No exercise-induced chest pain or cardiac arrhythmia 3. Good Exercise tolerance, attained a maximum of 7 METs. 4. Baseline hypertension with normal response to exercise. Electronically Signed On 11-08-2021 12:59:14 CDT by Rebeka Alvarado M.D. [email or web address]
[2021-11-04 12:00] VITALS: BMI 27.2
[2021-11-04 12:44] VITALS: BP 157/80; PULSE 81
== END 2021-11-04 12:03 | disposition home or self-care (01) ==
LOC: CDL 12:05
PROVIDERS: PCP Nurse Practitioner; Visit Provider Internal Medicine Cardiovascular Disease
DX: R07.9 Chest pain, unspecified (principal)
CPT/HCPCS: 93017

== ENCOUNTER → 2022-03-08 09:06 | Outpatient (BNVA) | payer OTHER, SELFPAY | PROVIDERS: PCP Nurse Practitioner; Visit Provider Urology | DX: N28.1 Cyst of kidney, acquired (principal); N40.0 Benign prostatic hyperplasia without lower urinary tract symptoms; N52.9 Male erectile dysfunction, unspecified; N48.6 Induration penis plastica; N52.1 Erectile dysfunction due to diseases classified elsewhere | CPT/HCPCS: 51798; 81003; 99213 ==

== ENCOUNTER → 2022-03-14 11:05 | Outpatient (BNVA) | payer OTHER, SELFPAY | PROVIDERS: PCP Nurse Practitioner; Visit Provider Internal Medicine Cardiovascular Disease | DX: Z71.89 Other specified counseling (principal); R03.0 Elevated blood-pressure reading, without diagnosis of hypertension; N40.0 Benign prostatic hyperplasia without lower urinary tract symptoms; M35.00 Sjogren syndrome, unspecified; N52.1 Erectile dysfunction due to diseases classified elsewhere | CPT/HCPCS: 99214; Q3014 ==

== ENCOUNTER → 2022-03-16 12:09 | Outpatient (BNVA) | payer OTHER, SELFPAY | PROVIDERS: PCP Nurse Practitioner; Visit Provider Internal Medicine Rheumatology | DX: M19.90 Unspecified osteoarthritis, unspecified site (principal); M35.00 Sjogren syndrome, unspecified; Z79.899 Other long term (current) drug therapy; Z71.89 Other specified counseling; G56.03 Carpal tunnel syndrome, bilateral upper limbs; Z82.61 Family history of arthritis; Z86.16 Personal history of COVID-19; K21.9 Gastro-esophageal reflux disease without esophagitis | CPT/HCPCS: 80076; 82306; 82565; 85025; 86140; 99214 ==

== ENCOUNTER → 2022-10-04 12:37 | Outpatient (BNVA) | payer OTHER, SELFPAY | PROVIDERS: PCP Nurse Practitioner; Visit Provider Internal Medicine Rheumatology | DX: Z79.899 Other long term (current) drug therapy (principal); M35.00 Sjogren syndrome, unspecified; M19.90 Unspecified osteoarthritis, unspecified site; Z71.89 Other specified counseling; Z82.61 Family history of arthritis; G56.03 Carpal tunnel syndrome, bilateral upper limbs; Z86.16 Personal history of COVID-19; K21.9 Gastro-esophageal reflux disease without esophagitis | CPT/HCPCS: 36415; 80076; 82565; 85025; 86140; 99214 ==

== ENCOUNTER → 2023-03-02 14:11 | Outpatient (BNVA) | payer OTHER, SELFPAY | PROVIDERS: PCP Nurse Practitioner; Visit Provider Nurse Practitioner Family | DX: L80 Vitiligo (principal); L23.9 Allergic contact dermatitis, unspecified cause; D22.5 Melanocytic nevi of trunk; L57.8 Other skin changes due to chronic exposure to nonionizing radiation; L57.0 Actinic keratosis; L20.89 Other atopic dermatitis | CPT/HCPCS: 17000; 99214 ==

== ENCOUNTER → 2023-03-21 12:55 | Outpatient (BNVA) | payer OTHER, SELFPAY | PROVIDERS: PCP Nurse Practitioner; Visit Provider Internal Medicine Cardiovascular Disease | DX: M35.00 Sjogren syndrome, unspecified (principal) | CPT/HCPCS: 99213 ==

== ENCOUNTER → 2023-04-04 12:29 | Outpatient (BNVA) | payer OTHER, SELFPAY | PROVIDERS: PCP Nurse Practitioner; Visit Provider Internal Medicine Rheumatology | DX: Z79.899 Other long term (current) drug therapy (principal); M35.00 Sjogren syndrome, unspecified; M19.90 Unspecified osteoarthritis, unspecified site; Z71.89 Other specified counseling | CPT/HCPCS: 36415; 80076; 82565; 85025; 86140; 99214 ==

== ENCOUNTER → 2023-09-19 13:02 | Outpatient (BNVA) | payer OTHER, SELFPAY | PROVIDERS: PCP Nurse Practitioner; Visit Provider Internal Medicine Rheumatology | DX: M35.00 Sjogren syndrome, unspecified (principal); M19.90 Unspecified osteoarthritis, unspecified site; G56.03 Carpal tunnel syndrome, bilateral upper limbs; Z79.899 Other long term (current) drug therapy; Z71.85 Encounter for immunization safety counseling; Z11.1 Encounter for screening for respiratory tuberculosis; Z11.59 Encounter for screening for other viral diseases | CPT/HCPCS: 36415; 80076; 82565; 85025; 85651; 86140; 99214 ==

== ENCOUNTER → 2024-03-04 11:04 | Outpatient (BNVA) | payer OTHER, SELFPAY | PROVIDERS: PCP Nurse Practitioner; Visit Provider Nurse Practitioner Family | DX: L80 Vitiligo (principal); L57.8 Other skin changes due to chronic exposure to nonionizing radiation; L81.4 Other melanin hyperpigmentation; D22.39 Melanocytic nevi of other parts of face; L30.0 Nummular dermatitis; L57.0 Actinic keratosis | CPT/HCPCS: 17000; 99213 ==

== ENCOUNTER → 2024-03-19 12:43 | Outpatient (BNVA) | payer OTHER, SELFPAY | PROVIDERS: PCP Nurse Practitioner; Visit Provider Internal Medicine Rheumatology | DX: M35.00 Sjogren syndrome, unspecified (principal); Z71.89 Other specified counseling; Z79.899 Other long term (current) drug therapy; M19.90 Unspecified osteoarthritis, unspecified site | CPT/HCPCS: 36415; 80076; 82565; 85025; 85651; 86140; 99214 ==

== ENCOUNTER → 2024-03-21 15:39 | Outpatient (BNVA) | payer OTHER, SELFPAY | PROVIDERS: PCP Nurse Practitioner; Visit Provider Internal Medicine Cardiovascular Disease | DX: I10 Essential (primary) hypertension (principal) | CPT/HCPCS: 99213 ==

== ENCOUNTER → 2024-09-04 09:31 | Outpatient (BNVA) | payer OTHER, SELFPAY | PROVIDERS: PCP Nurse Practitioner; Visit Provider Nurse Practitioner Family | DX: L80 Vitiligo (principal); L57.8 Other skin changes due to chronic exposure to nonionizing radiation; L81.4 Other melanin hyperpigmentation; L82.1 Other seborrheic keratosis; D22.5 Melanocytic nevi of trunk; S51.802A Unspecified open wound of left forearm, initial encounter; X58.XXXA Exposure to other specified factors, initial encounter; L57.0 Actinic keratosis | CPT/HCPCS: 17000; 99213 ==

== ENCOUNTER → 2025-01-16 13:39 | Outpatient (BNVA) | payer OTHER, SELFPAY | PROVIDERS: PCP Nurse Practitioner; Visit Provider Nurse Practitioner Family | DX: L80 Vitiligo (principal); L21.8 Other seborrheic dermatitis; L57.0 Actinic keratosis | CPT/HCPCS: 17000; 99214 ==